=== PATIENT | male | born 1965 | race Caucasian/White ===

== ENCOUNTER → 2017-01-21 | Outpatient (CLI) | payer BC ==
[~2017-01-21] MED LIST: ATEN25TA PO; DOXY100C PO; OMEP40CA2 PO
[2017-01-21 18:47] LABS: ALBUMIN 4.4 GM/DL (3.2-5.2); ANION GAP 7 MEQ/L (8-16); BLOOD UREA NITROGEN 18 MG/DL (7-18); CALCIUM LEVEL 9.6 MG/DL (8.5-10.1); CARBON DIOXIDE LEVEL 29 MEQ/L (21-32); CHLORIDE LEVEL 103 MEQ/L (98-107); CREATININE FOR GFR 1.09 MG/DL (0.70-1.30); GLOMERULAR FILTRATION RATE > 60.0 (>56); GLUCOSE, FASTING 92 MG/DL (70-105); PHOSPHORUS LEVEL 3.7 MG/DL (2.5-4.9); POTASSIUM SERUM 4.6 MEQ/L (3.5-5.1); SODIUM LEVEL 139 MEQ/L (136-145); URIC ACID 7.8 MG/DL (3.5-7.2)
== END ==
LOC: M WUC 12:56
PROVIDERS: ATTEND Physician Assistant
DX: M10.9 Gout, unspecified (principal)

== ENCOUNTER → 2017-07-26 | Outpatient (CLI) | payer BC ==
[2017-07-26 14:04] LABS: BASO # 0.1 10^3/uL (0.0-0.2); BASO % 1.5 % (0.0-1.0); EOS # 0.5 10^3/uL (0.0-0.50); EOS % 8.7 % (0.0-3.0); IMMATURE GRANULOCYTE % 0.3 % (0-0); LYMPH # 1.9 10^3/uL (1.5-4.5); MEAN CORPUSCULAR HEMOGLOBIN 30.1 pg (27.0-33.0); MEAN CORPUSCULAR HGB CONC 33.9 g/dl (32.0-36.5); MEAN CORPUSCULAR VOLUME 88.9 fl (80.0-96.0); MONO # 0.5 10^3/uL (0.0-0.8); MONO % 7.7 % (0.0-5.0); NEUTROPHILS # 3.1 10^3/uL (1.8-7.7); NEUTROPHILS % 50.8 % (36.0-66.0); PLATELET COUNT, AUTOMATED 264 10^3/uL (150-450); RED CELL DISTRIBUTION WIDTH 13.1 % (11.5-14.5); WHITE BLOOD COUNT 6.1 10^3/uL (4.0-10.0)
[2017-07-26 14:16] LABS: ALBUMIN 4.1 GM/DL (3.2-5.2); ALBUMIN/GLOBULIN RATIO 1.41 (1.00-1.93); ALKALINE PHOSPHATASE 45 U/L (45-117); ALT/SGPT 41 U/L (12-78); ANION GAP 7 MEQ/L (8-16); AST/SGOT 22 U/L (15-37); BILIRUBIN,TOTAL 0.6 MG/DL (0.2-1.0); BLOOD UREA NITROGEN 16 MG/DL (7-18); CALCIUM LEVEL 10.1 MG/DL (8.5-10.1); CARBON DIOXIDE LEVEL 27 MEQ/L (21-32); CHLORIDE LEVEL 104 MEQ/L (98-107); CHOLESTEROL LEVEL 126 MG/DL (<200); CREATININE FOR GFR 0.99 MG/DL (0.70-1.30); GLOMERULAR FILTRATION RATE > 60.0 (>56); GLUCOSE, FASTING 101 MG/DL (70-105); POTASSIUM SERUM 4.9 MEQ/L (3.5-5.1); SODIUM LEVEL 138 MEQ/L (136-145); TRIGLYCERIDES LEVEL 110 MG/DL (<150)
== END ==
LOC: M WUC 08:33
PROVIDERS: ATTEND Family Medicine
DX: Z00.00 Encounter for general adult medical examination without abnormal findings (principal)

== ENCOUNTER → 2017-11-28 | Day surgery (SDC) | payer BC ==
[~2017-11-28] MED LIST changes: -ATEN25TA PO; -DOXY100C PO; +LIDOCAINE 2% INJ 100 MG/5 ML SDV (FOR ANES.) As Ordered; -OMEP40CA2 PO; +PROPOFOL 200 MG/20 ML VIAL As Ordered
[2017-11-28] MEDS: LR 500 ML IV (07:00)
== END | disposition home or self-care (01) ==
LOC: M OPP 06:57
DX: Z12.11 Encounter for screening for malignant neoplasm of colon (principal); D12.5 Benign neoplasm of sigmoid colon; D12.8 Benign neoplasm of rectum; I10 Essential (primary) hypertension; M10.9 Gout, unspecified; R12 Heartburn; K21.9 Gastro-esophageal reflux disease without esophagitis; M19.90 Unspecified osteoarthritis, unspecified site; L71.9 Rosacea, unspecified; R06.83 Snoring; G47.30 Sleep apnea, unspecified; Z87.442 Personal history of urinary calculi; Z87.891 Personal history of nicotine dependence; Z79.899 Other long term (current) drug therapy; Z83.71 Family history of colonic polyps
CPT/HCPCS: 45384

== ENCOUNTER → 2020-04-01 | Outpatient (REF) | payer OTHER ==
[~2020-04-01] MED LIST changes: +ALLO100T PO; +ATEN25TA PO; +DOXY100C PO; -LIDOCAINE 2% INJ 100 MG/5 ML SDV (FOR ANES.) As Ordered; +NEXI20CA PO; +OMEP40CA97 PO; -PROPOFOL 200 MG/20 ML VIAL As Ordered; +TYLE500T78 PO
[2020-04-01 18:53] LABS: APPEARANCE, URINE CLEAR (CLEAR); BACTERIA, URINE AUTO NEGATIVE (NEGATIVE); BILIRUBIN, URINE AUTO NEGATIVE (NEGATIVE); BLOOD, URINE BLOOD 1+ (NEGATIVE); CALCIUM OXALATE CRYSTALS SMALL; COLOR, URINE YELLOW (YELLOW); GLUCOSE, URINE (UA) AUTO NEGATIVE (NEGATIVE); KETONE, URINE AUTO NEGATIVE (NEGATIVE); LEUKOCYTE ESTERASE, URINE AUTO TRACE (NEGATIVE); MUCUS, URINE SMALL (NEGATIVE); NITRITE, URINE AUTO NEGATIVE (NEGATIVE); PROTEIN, URINE AUTO 1+ mg/dL (NEGATIVE); RBC, URINE AUTO 4 /HPF (0-3); SPECIFIC GRAVITY URINE AUTO 1.023 (1.002-1.035); SQUAMOUS EPITHELIAL CELL UR AU 0 /HPF (0-6); UROBILINOGEN, URINE AUTO 0.2 mg/dL (0.0-2.0); WBC, URINE AUTO 2 /HPF (0-3)
== END ==
LOC: M SMT 16:37
PROVIDERS: ATTEND Nurse Practitioner Women's Health
DX: R82.89 Other abnormal findings on cytological and histological examination of urine (principal); R31.29 Other microscopic hematuria

== ENCOUNTER → 2020-04-27 | Outpatient (CLI) | payer OTHER ==
[~2020-04-27] MED LIST changes: +ISOVUE-370 76% 100ML VIAL As Ordered ONE
--- NOTE | 2020-04-27 12:17 | REP ---
MICROSCOPIC HEMATURIA. The only prior for comparison is a noncontrast enhanced examination of 06/10/2009. CONTRAST TODAY: 100 mL Isovue 370. The lung bases are clear. The precontrast enhanced examination shows a round 4 cm sized low density structure arising from the superior pole of the right kidney. This has water density Hounsfield unit readings. This has increased in size from the prior exam. In the left renal pelvis, there is an oval-shaped 1 cm sized calcification. There is mild left renal pelviectasis without julisa hydronephrosis. In the interpolar region of the right kidney, there is a 7 mm sized non-obstructing nephrolith. Both calcifications represent a change from the prior exam. The prior exam did show an extrarenal pelvis on the left. No other renal or oral collecting system calcifications are present. There are no urinary bladder calcifications. There corpora amylacea status quo. Contrast-enhanced portion of the exam shows no abnormal renal enhancing abnormalities. The liver, gallbladder, spleen, pancreas, and adrenal glands are within normal limits. The bowel loops and mesenteries are within normal limits. There is no free fluid or free air. The abdominal aorta and para-aortic regions are within normal limits. Delayed imaging through the pelvis shows no evidence of a filling defect in the opacified portion of the urinary bladder. MIP 3D imaging of the renal collecting system bilaterally shows complete opacification of the left renal collecting system with incomplete opacification on the right likely secondary to normal ureteral peristaltic activity. This is seen in the mid portion of the right ureter. Bone window technique throughout the exam shows the osseous structures to be within normal limits. IMPRESSION: 1. Left renal pelvis calcification as described above. 2. Right nephrolith not causing obstructive phenomena as described above and seen in conjunction with a Bosniak class 1 simple right renal cyst. 3. Other findings as described above. Electronically Signed by Luther Hernandez DO 04/27/2020 02:27 P
== END ==
LOC: M RAD 08:57
PROVIDERS: ATTEND Nurse Practitioner Women's Health
DX: N20.0 Calculus of kidney (principal); R31.29 Other microscopic hematuria
CPT/HCPCS: 74178; Q9967

== ENCOUNTER → 2020-11-07 | Outpatient (CLI) | payer OTHER ==
[~2020-11-07] MED LIST changes: +FLOM0.4C39 PO; -ISOVUE-370 76% 100ML VIAL As Ordered ONE; +PERC5TAB12 PO
== END ==
LOC: M LABSMTC 09:24
PROVIDERS: ATTEND Anesthesiology
DX: Z01.812 Encounter for preprocedural laboratory examination (principal); Z20.822 Contact with and (suspected) exposure to COVID-19

== ENCOUNTER 2020-11-12 07:09 | Day surgery (SDC) | payer OTHER ==
[~2020-11-12] VITALS: Ht 177.8 cm; Wt 87.5 kg
[~2020-11-12 07:09] MED LIST changes: -FLOM0.4C39 PO; +LIDOCAINE 1% MDV 20ML VIAL SQ PRN; +LR 1,000 ML IV ONE; -PERC5TAB12 PO; +ceFAZolin SOD 2 GM in IV 1 EA IV ONE
--- OUTSIDE RECORDS SUMMARY | 2020-11-12 07:14 | CCD ---
Author Author [facility] Organization [facility] Address Unknown Phone Unavailable Care Team Providers Care Night Custodian Name Role Phone Anshu Rosales Unavailable PROBLEMS Type Condition ICD9-CM Code [id number] Code Onset Dates Condition S tatus SNOMED Code Notes Problem Kidney stone N20.0 Active 10191801 ALLERGIES No Known Allergies ENCOUNTERS from 1965 to 2020-11-11 Encounter Location Date Provider Diagnosis [facility] [address] [address] Oct Anshu Rosales IMMUNIZATIONS No Information SOCIAL HISTORY Tobacco Use: Social History Observation Description Date Details (start date - stop date) Former Smoker Sex Assigned At : Social History Observation Description Sex Assigned At Unknown Language: Question Answer Notes Languages spoken: Thai Latter Day: Question Answer Notes Latter Day No congregational beliefs that would impact health care. Alcohol Screening: Question Answer Notes Did you have a drink containing alcohol in the past year? Ye s Points 1 Interpretation Negative How often did you have six or more drinks on one occas ion in the past year? Never (0 points) How many drinks did you have on a typica l day when you were drinking in the past year? 1 or 2 (0 points) How often did you have a drink containing alcohol in t he past year? Monthly or less (1 point) Tobacco Use: Question Answer Notes Are you a: former smoker smoked cigars and o cc cig does not smoke regularly REASON FOR REFERRAL No Information VITAL SIGNS No information MEDICATIONS Medication SIG (Take, Route, Frequency, Duration) Notes Start Da te End Date Status Bactrim DS 800-160 MG 1 tablet Orally as directed- 1 hour prior to cystoscopy Mar, Not-Taking Doxycycline Hyclate 100 MG 1 capsule Orally Once a day for 10 day(s) Active Atenolol 25 MG 1 tablet Orally Once a day for 30 day(s) Active Allopurinol 300 MG 1 tablet Orally Once a day for 30 day(s) Active Metronidazole 1 % 1 application Externally Once a day Not-Taking Sildenafil Citrate 100 MG 1 tablet as needed Orally Once a day f or 30 day(s) Not-Taking PROCEDURES No Information RESULTS No Results REASON FOR VISIT Pre-op labs MEDICAL (GENERAL) HISTORY Type Description Date Medical History kidney stone Medical History GERD Medical History HTN Medical History GOUT Surgical History RIGHT INGUINAL HERNIA REPAIR Surgical History RIGHT ROOT X 2- [place] Surgical History LITHOTRIPSY Hospitalization History No Hospitalization history informati on Goals Section No Information Health Concerns No Information MEDICAL EQUIPMENT No Information MENTAL STATUS No Information FUNCTIONAL STATUS No Information ASSESSMENTS No Information PLAN OF TREATMENT Next Appt Details Provider Name:Milena Garcia, 2020-11-17 2 09:00:00 AM, [address], [place], [address], Insurance Providers Payer Name Payer Address Payer Phone Insured Name Patient Relati onship to Insured Coverage Start Date Coverage End Date [employer] [id number] [facility] [id number] [address] self
--- OUTSIDE RECORDS SUMMARY | 2020-11-12 07:14 | CCD ---
Author Author [facility] Organization [facility] Address Unknown Phone Unavailable Care Team Providers Care Medical Auditor Name Role Phone Milena Garcia Unavailable PROBLEMS Type Condition ICD9-CM Code [id number] Code Onset Dates Condition S tatus SNOMED Code Notes Problem Kidney stone N20.0 Active 37883837 ALLERGIES No Known Allergies ENCOUNTERS from 1965 to 2020-10-14 Encounter Location Date Provider Diagnosis [facility] Urology [address] [place] [address] Sep Milena Recore Kidney stone N20.0 and Pre-op testing Z0 1.818 IMMUNIZATIONS No Information SOCIAL HISTORY Tobacco Use: Social History Observation Description Date Details (start date - stop date) Former Smoker Sex Assigned At : Social History Observation Description Sex Assigned At Unknown Language: Question Answer Notes Languages spoken: Mexican Buddhist: Question Answer Notes Buddhist No congregation beliefs that would impact health care. Alcohol [...] Information RESULTS No Results REASON FOR VISIT [facility] MEDICAL (GENERAL) HISTORY Type Description Date Medical [...] No Information FUNCTIONAL STATUS No Information ASSESSMENTS Encounter Date Diagnosis Assessment Notes Treatment Notes Treatm ent Clinical Notes Sep, Kidney stone (ICD-10 - N20.0) Sep, Pre-op testing (ICD-10 - Z01.818) PLAN OF TREATMENT Treatment Notes Test Name Order Date CBC - Complete Blood Count 2020-10-14 PT & APTT 2020-10-14 URINE CULTURE 2020-10-14 UA URINALYSIS 2020-10-14 Basic Metabolic Profile (BMP) 2020-10-14 Future Test Test Name Order Date PLZ ABDOMEN 1 VIEW (KUB) [id number] Insurance Providers Payer Name Payer Address Payer Phone Insured Name Patient Relati onship to Insured Coverage Start Date Coverage End Date [employer] [id number] [id number] [address]
--- OUTSIDE RECORDS SUMMARY | 2020-11-12 07:14 | CCD ---
Author Author [facility] Organization [facility] Address Unknown Phone Unavailable Care Team Providers Care Child Care Center Administrator Name Role Phone Anshu Rosales Unavailable PROBLEMS Type Condition ICD9-CM Code LIB11-RC Code Onset Dates Condition S tatus SNOMED Code Notes Problem Kidney stone N20.0 Active [id number] ALLERGIES No Known Allergies ENCOUNTERS from 1965 to 2020-11-09 Encounter Location Date Provider Diagnosis [facility] [address] [place] [address] Oct Anshu Rosales IMMUNIZATIONS No Information SOCIAL HISTORY Tobacco Use: Social History Observation Description Date Details (start date - stop date) Former Smoker Sex Assigned At : Social History Observation Description Sex Assigned At Unknown Language: Question Answer Notes Languages spoken: Lao Islam: Question Answer Notes Islam No pentecostal beliefs that would impact health care. Alcohol [...] Information RESULTS No Results REASON FOR VISIT COVID exposure MEDICAL (GENERAL) HISTORY Type Description Date Medical [...] Provider Name:Milena Garcia, 2020-11-17 2 09:00:00 AM, [address], [place], [address], Insurance Providers Payer Name Payer Address Payer Phone Insured Name Patient Relati onship to Insured Coverage Start Date Coverage End Date [employer] [id number] [facility] [id number] [address] self
--- OUTSIDE RECORDS SUMMARY | 2020-11-12 07:14 | CCD ---
Author Author [facility] Organization [facility] Address Unknown Phone Unavailable Care Team Providers Care Master Brewer Name Role Phone Milena Garcia Unavailable PROBLEMS Type Condition ICD9-CM Code [id number] Code Onset Dates Condition S tatus SNOMED Code Notes Problem Kidney stone N20.0 Active 02102207 ALLERGIES No Known Allergies ENCOUNTERS from 1965 to 2020-10-22 Encounter Location Date Provider Diagnosis [facility] [address] [place] [address] Oct Milena Garcia Kidney stone N20.0 IMMUNIZATIONS No Information SOCIAL HISTORY Tobacco Use: Social History Observation Description Date Details (start date - stop date) Former Smoker Sex Assigned At : Social History Observation Description Sex Assigned At Unknown Language: Question Answer Notes Languages spoken: German Latter Day: Question Answer Notes Latter Day No zoroastrianism beliefs that would impact health care. Alcohol [...] Information RESULTS No Results REASON FOR VISIT KUB order MEDICAL (GENERAL) HISTORY Type Description Date Medical [...] Notes Treatment Notes Treatm ent Clinical Notes Oct, Kidney stone (ICD-10 - N20.0) PLAN OF TREATMENT Treatment Notes Test Name Order Date PLZ ABDOMEN 1 VIEW (KUB) 2020-10-22 Next Appt Details Provider Name:Milena Garcia, 2020-11-17 2 09:00:00 AM, [address], [place], [address], Insurance Providers Payer Name Payer Address Payer Phone Insured Name Patient Relati onship to Insured Coverage Start Date Coverage End Date [employer] [id number] [facility] [id number] [address]
--- OUTSIDE RECORDS SUMMARY | 2020-11-12 07:15 | CCD ---
Author Author [facility] Organization [facility] Address Unknown Phone Unavailable Care Team Providers Care Telephone Order Supervisor Name Role Phone Milena Garcia Unavailable PROBLEMS Type Condition ICD9-CM Code [id number] Code Onset Dates Condition S tatus SNOMED Code Notes Problem Kidney stone N20.0 Active 12740367 ALLERGIES No Known Allergies ENCOUNTERS from 1965 to 2020-10-01 Encounter Location Date Provider Diagnosis [facility] Urology [address] [place] [address] Sep Milena Garcia IMMUNIZATIONS No Information SOCIAL HISTORY Tobacco Use: Social History Observation Description Date Details (start date - stop date) Former Smoker Sex Assigned At : Social History Observation Description Sex Assigned At Unknown Language: Question Answer Notes Languages spoken: St [place] Anglican: Question Answer Notes Anglican No latter-day beliefs that would impact health care. Alcohol [...] Information ASSESSMENTS No Information PLAN OF TREATMENT No Information Insurance Providers Payer Name Payer Address Payer Phone Insured Name Patient Relati onship to Insured Coverage Start Date Coverage End Date [employer] [id number] [facility] [id number] [address] self
--- OUTSIDE RECORDS SUMMARY | 2020-11-12 07:15 | CCD ---
Author Author [facility] Organization [facility] Address Unknown Phone Unavailable Care Team Providers Care Appointment Manager Name Role Phone Pleskach, Joy STEAM LOCOMOTIVE FIRER/FIREMAN Unavailable Unavailable Pleskach, Joy STEAM LOCOMOTIVE FIRER/FIREMAN Unavailable Unavailable Pleskach, Joy STEAM LOCOMOTIVE FIRER/FIREMAN Unavailable Unavailable Pleskach, Joy STEAM LOCOMOTIVE FIRER/FIREMAN Unavailable Unavailable Pleskach, Joy STEAM LOCOMOTIVE FIRER/FIREMAN Unavailable Unavailable Pleskach, Joy STEAM LOCOMOTIVE FIRER/FIREMAN Unavailable Unavailable Pleskach, Joy STEAM LOCOMOTIVE FIRER/FIREMAN Unavailable Unavailable Pleskach, Joy STEAM LOCOMOTIVE FIRER/FIREMAN Unavailable Unavailable Pleskach, Joy STEAM LOCOMOTIVE FIRER/FIREMAN Unavailable Unavailable Pleskach, Joy STEAM LOCOMOTIVE FIRER/FIREMAN Unavailable Unavailable Pleskach, Joy STEAM LOCOMOTIVE FIRER/FIREMAN Unavailable Unavailable Pleskach, Joy STEAM LOCOMOTIVE FIRER/FIREMAN Unavailable Unavailable Pleskach, Joy STEAM LOCOMOTIVE FIRER/FIREMAN Unavailable Unavailable Pleskach, Joy STEAM LOCOMOTIVE FIRER/FIREMAN Unavailable Unavailable Pleskach, Joy STEAM LOCOMOTIVE FIRER/FIREMAN Unavailable Unavailable Pleskach, Joy STEAM LOCOMOTIVE FIRER/FIREMAN Unavailable Unavailable Pleskach, Joy STEAM LOCOMOTIVE FIRER/FIREMAN Unavailable Unavailable Pleskach, Joy STEAM LOCOMOTIVE FIRER/FIREMAN Unavailable Unavailable Pleskach, Joy STEAM LOCOMOTIVE FIRER/FIREMAN Unavailable Unavailable Pleskach, Joy STEAM LOCOMOTIVE FIRER/FIREMAN Unavailable Unavailable Pleskach, Joy STEAM LOCOMOTIVE FIRER/FIREMAN Unavailable Unavailable Pleskach, Joy STEAM LOCOMOTIVE FIRER/FIREMAN Unavailable Unavailable Pleskach, Joy STEAM LOCOMOTIVE FIRER/FIREMAN Unavailable Unavailable Pleskach, Joy STEAM LOCOMOTIVE FIRER/FIREMAN Unavailable Unavailable Pleskach, Joy STEAM LOCOMOTIVE FIRER/FIREMAN Unavailable Unavailable Pleskach, Joy STEAM LOCOMOTIVE FIRER/FIREMAN Unavailable Unavailable Pleskach, Joy STEAM LOCOMOTIVE FIRER/FIREMAN Unavailable Unavailable Pleskach, Joy STEAM LOCOMOTIVE FIRER/FIREMAN Unavailable Unavailable Re-disclosure Warning The records that you are about to access may contain information from federally-assisted alcohol or drug abuse programs. If such information is present, then the following federally mandated warning applies: This information has been disclosed to you from records protected by federal confidentiality rules (42 CFR part 2). The federal rules prohibit you from making any further disclosure of this information unless further disclosure is expressly permitted by the written consent of the person to whom it pertains or as otherwise permitted by 42 CFR part 2. A general authorization for the release of medical or other information is NOT sufficient for this purpose. The Federal rules restrict any use of the information to criminally investigate or prosecute any alcohol or drug abuse patient.The records that you are about to access may contain highly sensitive health information, the redisclosure of which is protected by Article 27-F of the [facility] Public Health law. If you continue you may have access to information: Regarding HIV / AIDS; Provided by facilities licensed or operated by the [facility] Office of Mental Health; or Provided by the [facility] Office for People With Developmental Disabilities. If such information is present, then the following [facility] mandated warning applies: This information has been disclosed to you from confidential records which are protected by state law. State law prohibits you from making any further disclosure of this information without the specific written consent of the person to whom it pertains, or as otherwise permitted by law. Any unauthorized further disclosure in violation of state law may result in a fine or long term sentence or both. A general authorization for the release of medical or other information is NOT sufficient authorization for further disc losure. Family History Family Member Name Family Member Gender Family Member Status Date o f Status Description Data Source(s) Unknown Male Problem MEDENT ([facility]) Unknown Unknown Problem [facility] ([facility] Unknown Unknown Problem [facility] ([facility] Encounters Encounter Providers Location Date Indications Data Source(s ) Unknown [address] [facility] [place] [address] 11/10/2020 12:00:00 AM EST eCW1 ([facility]) [place] [address] [facility] [address] 11/09/2020 12:00:00 AM EST eCW1 ([facility]) [place] [address] [facility] [address] 10/21/2020 12:00:00 AM EST eCW1 ([facility]) Unknown [address] [facility] [place] [address] 09/22/2020 12:00:00 AM EST eCW1 ([facility]) Outpatient [address] [facility] [address] 09/16/2020 12:00:00 AM EST eCW1 ([facility]) Outpatient [address] [facility] [address] 04/01/2020 12:00:00 AM EDT eCW1 ([facility]) Outpatient Attender: Joy Obando [facility] Main Office 03/17/2020 1 0:40:00 AM EDT [facility] ([facility] Medications Medication Brand Name Start Date Product Form Dose Route Admi nistrative Instructions Pharmacy Instructions Status Indications Reaction Description Data Source(s) 100,000 unit/mL 06/10/2020 12:00:00 AM EDT suspension 168 SWISH 6MLS IN THE MOUTH FOR 30 SECONDS THEN SWALLOW FOUR TIMES A DAY SWISH 6MLS IN THE MOUTH FOR 30 SECONDS THEN SWALLOW FOUR TIMES A DAY SOLD: 06/12/2020 [facility] Sulfamethoxazole 800 MG / Trimethoprim 1 60 MG Oral Tablet [Bactrim] Bactrim DS 800-160 MG Bactrim DS 800-160 MG 04/01/2020 12:00:00 AM EDT 1.0 {table t} active Bactrim DS 800-160 MG eCW1 ( [facility]) Sulfamethoxazole 800 MG / Trimethoprim 1 60 MG Oral Tablet [Bactrim] Bactrim DS 800-160 MG Bactrim DS 800-160 MG 04/01/2020 12:00:00 AM EDT 1.0 {table t} suspended Bactrim DS 800-160 MG eCW1 ( [facility]) Sulfamethoxazole 800 MG / Trimethoprim 1 60 MG Oral Tablet [Bactrim] Bactrim DS 800-160 MG Bactrim DS 800-160 MG 04/01/2020 12:00:00 AM EDT 1.0 {table t} suspended Bactrim DS 800-160 MG eCW1 ( [facility]) Sulfamethoxazole 800 MG / Trimethoprim 1 60 MG Oral Tablet [Bactrim] Bactrim DS 800-160 MG Bactrim DS 800-160 MG 04/01/2020 12:00:00 AM EDT 1.0 {table t} suspended Bactrim DS 800-160 MG eCW1 ( [facility]) Sulfamethoxazole 800 MG / Trimethoprim 1 60 MG Oral Tablet [Bactrim] Bactrim DS 800-160 MG Bactrim DS 800-160 MG 04/01/2020 12:00:00 AM EDT 1.0 {table t} suspended Bactrim DS 800-160 MG eCW1 ( [facility]) Sulfamethoxazole 800 MG / Trimethoprim 1 60 MG Oral Tablet [Bactrim] Bactrim DS 800-160 MG Bactrim DS 800-160 MG 04/01/2020 12:00:00 AM EDT 1.0 {table t} suspended Bactrim DS 800-160 MG eCW1 ( [facility]) Sulfamethoxazole 800 MG / Trimethoprim 1 60 MG Oral Tablet [Bactrim] Bactrim DS 800-160 MG Bactrim DS 800-160 MG 04/01/2020 12:00:00 AM EDT 1.0 {table t} suspended Bactrim DS 800-160 MG eCW1 ( [facility]) Insurance Providers Payer name Policy type / Coverage type Policy ID Covered libertarian ID Covered libertarian's relationship to morales Policy Morales Plan Information [employer] [id number] SP [id number] [employer] [id number] SP [id number] [employer] [id number] SP [id number] [employer] [id number] SP [id number] [place] 302/307 [id number] SP [id number] [place] 302/307 [id number] SP [id number] BS Of [facility] Health Maintenance Organization (HMO) [id number] Self [id number] BS Of [facility] ([facility]) [id number] Self [id number] BS Of [facility] ([facility]) [id number] Self [id number] BCBS/Blue Card Commercial [id number] Self [id number] BCBS/Blue Card Commercial [id number] Self [id number] BS Of [facility] ([facility]) Self [facility] [id number] SP [id number] Problems, Conditions, and Diagnoses Code Display Name Description Problem Type Effective Dates Data Source(s) N20.0 Kidney stone Kidney stone Problem 09/16/2020 12:00:00 A M EST eCW1 ([facility]) Results ID Date Data Source [id number] 11/07/2020 09:00:00 AM EST [facility] Name Value Range Interpretation Code Description Data Ana rce(s) Supporting Document(s) SARS coronavirus 2 RNA Not Detected [facility] This lab was ordered by [facility] and reported by [facility]. ID Date Data Source [id number] 03/19/2020 02:14:00 PM EDT [facility] ([facility] Name Value Range Interpretation Code Description Data Ana rce(s) Supporting Document(s) Albumin/Creatinine [Mass Ratio] in Urine 31 mg/gcreat 0-29 [facility] ([facility] Source of Specimen: UC Normal: 0 - 29 Moderately increased: 30 - 300 Severely increased: >300 Please note reference interval change Creatinine [Mass/volume] in Urine 130.4 mg/dL [facility] ([facility] Source of Specimen: UC Microalbumin [Mass/volume] in Urine 40.8 ug/mL [facility] ([facility] Source of Specimen: UC ID Date Data Source [id number] 03/19/2020 02:14:00 PM EDT [facility] ([facility] Name Value Range Interpretation Code Description Data Ana rce(s) Supporting Document(s) Glucose [Mass/volume] in Serum or Plasma 123 mg/dL 65-99 [facility] ([facility] Source of Specimen: UC Urea nitrogen [Mass/volume] in Serum or Plasma 19 mg/dL 6-24 [facility] ([facility] Source of Specimen: UC Creatinine [Mass/volume] in Serum or Plasma 0.88 mg/dL 0.76-1.27 [facility] ([facility] Source of Specimen: UC Urea nitrogen/Creatinine [Mass Ratio] in Serum or Plasma 22 9 -20 [facility] ([facility] Source of Specimen: UC eGFR If NonAfricn Am 96 mL/min/1.73 [facility] ([facility] Source of Specimen: UC eGFR If Africn Am 111 mL/min/1.73 [facility] ([facility] Source of Specimen: UC Sodium [Moles/volume] in Serum or Plasma 140 mmol/L 134-144 [facility] ([facility] Source of Specimen: UC Chloride [Moles/volume] in Serum or Plasma 106 mmol/L 96-106 [facility] ([facility] Source of Specimen: UC Potassium [Moles/volume] in Serum or Plasma 4.1 mmol/L 3.5-5.2 [facility] ([facility] Source of Specimen: UC Calcium [Mass/volume] in Serum or Plasma 9.5 mg/dL 8.7-10.2 [facility] ([facility] Source of Specimen: UC Protein, Total 6.9 g/dL 6.0-8.5 [facility] ([facility] Source of Specimen: UC Carbon dioxide, total [Moles/volume] in Serum or Plasma 21 mmol/L 20 -29 [facility] ([facility] Source of Specimen: UC Albumin [Mass/volume] in Serum or Plasma 4.6 g/dL 3.8-4.9 [facility] ([facility] Source of Specimen: UC Globulin [Mass/volume] in Serum by calculation 2.3 g/dL 1.5-4.5 [facility] ([facility] Source of Specimen: UC Albumin/Globulin [Mass Ratio] in Serum or Plasma 2.0 1.2-2.2 [facility] ([facility] Source of Specimen: UC Bilirubin.total [Mass/volume] in Serum or Plasma 0.2 mg/dL 0.0-1.2 [facility] ([facility] Source of Specimen: UC Alkaline phosphatase [Enzymatic activity/volume] in Serum or Plasma 45 IU/L 39-117 [facility] ([facility] Source of Specimen: UC Alanine aminotransferase [Enzymatic activity/volume] in Seru m or Plasma 25 IU/L 0-44 [facility] ([facility] Source of Specimen: UC Aspartate aminotransferase [Enzymatic activity/volume] in Serum or Plasma 21 IU/L 0-40 [facility] ([facility] Source of Specimen: UC ID Date Data Source [id number] 03/19/2020 02:14:00 PM EDT [facility] ([facility] Name Value Range Interpretation Code Description Data Ana rce(s) Supporting Document(s) Bacteria identified in Urine by Culture Laboratory test result [facility] ([facility] Source of Specimen: UC Urine Culture, Routine Laboratory test result [facility] ([facility] Source of Specimen: UC ID Date Data Source [id number] 03/19/2020 02:14:00 PM EDT [facility] ([facility] Name Value Range Interpretation Code Description Data Ana rce(s) Supporting Document(s) Leukocytes [#/volume] in Blood by Automated count 6.2 x10E3/uL 3.4-10 .8 [facility] ([facility] Source of Specimen: UC Hematocrit [Volume Fraction] of Blood by Automated count 44.9 % 3 7.5-51.0 [facility] ([facility] Source of Specimen: UC Hemoglobin [Mass/volume] in Blood 15.7 g/dL 13.0-17.7 [facility] ([facility] Source of Specimen: UC Erythrocytes [#/volume] in Blood by Automated count 5.10 x10E6/uL 4.1 4-5.80 [facility] ([facility] Source of Specimen: UC Erythrocyte mean corpuscular volume [Entitic volume] by Auto mated count 88 fL 79-97 [facility] ([facility] Source of Specimen: UC Erythrocyte mean corpuscular hemoglobin [Entitic mass] by Automated count 30.8 pg 26.6-33.0 [facility] ([facility] Source of Specimen: UC Erythrocyte mean corpuscular hemoglobin concentration [Mass/volume] by Automated count 35.0 g/dL 31.5-35.7 [facility] ([facility] Source of Specimen: UC Erythrocyte distribution width [Ratio] by Automated count 13.7 % 11.6-15.4 [facility] ([facility] Source of Specimen: UC Platelets [#/volume] in Blood by Automated count 275 x10E3/uL 150-450 [facility] ([facility] Source of Specimen: UC Neutrophils 44 % [facility] Source of Specimen: UC Lymphocytes/100 leukocytes in Blood by Automated count 37 % [facility] ([facility] Source of Specimen: UC Monocytes/100 leukocytes in Blood by Automated count 6 % [facility] ([facility] Source of Specimen: UC Eosinophils/100 leukocytes in Blood by Automated count 11 % [facility] ([facility] Source of Specimen: UC Basophils/100 leukocytes in Blood by Automated count 2 % [facility] ([facility] Source of Specimen: UC Neutrophils [#/volume] in Blood by Automated count 2.7 x10E3/uL 1.4-7 .0 [facility] ([facility] Source of Specimen: UC Immature cells [#/volume] in Blood Laboratory test result [facility] ([facility] Source of Specimen: UC Lymphocytes [#/volume] in Blood 2.3 x10E3/uL 0.7-3.1 [facility] ([facility] Source of Specimen: UC Monocytes [#/volume] in Blood 0.4 x10E3/uL 0.1-0.9 [facility] ([facility] Source of Specimen: UC Eosinophils [#/volume] in Blood by Automated count 0.7 x10E3/uL 0.0-0 .4 [facility] ([facility] Source of Specimen: UC Basophils [#/volume] in Blood by Automated count 0.1 x10E3/uL 0.0-0.2 [facility] ([facility] Source of Specimen: UC Immature granulocytes/100 leukocytes in Blood by Automated count 0 % [facility] ([facility] Source of Specimen: UC Immature granulocytes [#/volume] in Blood by Automated count 0.0 x10E3/uL 0.0-0.1 [facility] ([facility] Source of Specimen: UC Nucleated erythrocytes/100 leukocytes [Ratio] in Blood by Automated count Laboratory test result [facility] ([facility] Source of Specimen: Morphology [Interpretation] in Blood Narrative Laboratory test result [facility] ([facility] Source of Specimen: ID Date Data Source [id number] 03/20/2020 08:07:00 AM EDT [facility] Name Value Range Interpretation Code Description Data Ana rce(s) Supporting Document(s) WBC 6.2 x10E3/uL 3.4-10.8 [facility] RBC 5.10 x10E6/uL 4.14-5.80 [facility] Hemoglobin 15.7 g/dL 13.0-17.7 [facility] Hematocrit 44.9 % 37.5-51.0 [facility] MCV 88 fL 79-97 [facility] MCH 30.8 pg 26.6-33.0 [facility] MCHC 35.0 g/dL 31.5-35.7 [facility] RDW 13.7 % 11.6-15.4 [facility] Platelets 275 x10E3/uL 150-450 [facility] Neutrophils 44 % Not Estab. [facility] Lymphs 37 % Not Estab. [facility] Monocytes 6 % Not Estab. [facility] Eos 11 % Not Estab. [facility] Basos 2 % Not Estab. [facility] Neutrophils (Absolute) 2.7 x10E3/uL 1.4-7.0 [facility] Lymphs (Absolute) 2.3 x10E3/uL 0.7-3.1 [facility] Monocytes(Absolute) 0.4 x10E3/uL 0.1-0.9 [facility] Eos (Absolute) 0.7 x10E3/uL 0.0-0.4 Above high normal [facility] Baso (Absolute) 0.1 x10E3/uL 0.0-0.2 [facility] Immature Granulocytes 0 % Not Estab. [facility] Immature Grans (Abs) 0.0 x10E3/uL 0.0-0.1 [facility] ID Date Data Source [id number] 03/20/2020 12:06:00 PM EDT [facility] Name Value Range Interpretation Code Description Data Ana rce(s) Supporting Document(s) Creatinine, Urine 130.4 mg/dL Not Estab. [facility] Albumin, Urine 40.8 ug/mL Not Estab. [facility] Alb/Creat Ratio 31 mg/g creat 0-29 Above high normal [facility] No rmal: 0 - 29 Moderately increased: 30 - 300 Severely increased: >300 Please note reference interval change ID Date Data Source [id number] 03/21/2020 02:05:00 AM EDT [facility] Name Value Range Interpretation Code Description Data Ana rce(s) Supporting Document(s) Urine Culture, Routine Final report [facility] ID Date Data Source [id number] 03/20/2020 08:07:00 AM EDT [facility] Name Value Range Interpretation Code Description Data Ana rce(s) Supporting Document(s) Glucose 123 mg/dL 65-99 Above high normal [facility] BUN 19 mg/dL 6-24 [facility] Creatinine 0.88 mg/dL 0.76-1.27 [facility] eGFR If NonAfricn Am 96 mL/min/1.73 >59 [facility] eGFR If Africn Am 111 mL/min/1.73 >59 [facility] BUN/Creatinine Ratio 22 9-20 Above high normal [facility] Sodium 140 mmol/L 134-144 [facility] Potassium 4.1 mmol/L 3.5-5.2 [facility] Chloride 106 mmol/L 96-106 [facility] Carbon Dioxide, Total 21 mmol/L 20-29 [facility] Calcium 9.5 mg/dL 8.7-10.2 [facility] Protein, Total 6.9 g/dL 6.0-8.5 [facility] Albumin 4.6 g/dL 3.8-4.9 [facility] Globulin, Total 2.3 g/dL 1.5-4.5 [facility] A/G Ratio 2.0 1.2-2.2 [facility] Bilirubin, Total 0.2 mg/dL 0.0-1.2 [facility] Alkaline Phosphatase 45 IU/L 39-117 [facility] AST (SGOT) 21 IU/L 0-40 [facility] ALT (SGPT) 25 IU/L 0-44 [facility] ID Date Data Source [id number] 03/21/2020 02:05:00 AM EDT [facility] Name Value Range Interpretation Code Description Data Ana rce(s) Supporting Document(s) Result 1 No growth [facility] ID Date Data Source [id number] 03/17/2020 11:18:00 AM EDT [facility] ([facility] Name Value Range Interpretation Code Description Data Ana rce(s) Supporting Document(s) Color of Urine Laboratory test result [facility] ([facility] pH of Urine by Test strip 5 [facility] Specific gravity of Urine 1.025 [facility] NT ([facility] Appearance of Urine Laboratory test result [facility] ([facility] Leukocytes [#/area] in Urine sediment by Microscopy hi gh power field Laboratory test result [facility] ([facility] Protein [Presence] in Urine by Test strip Laboratory test result [facility] ([facility] Glucose [Presence] in Urine Laboratory test result [facility] ([facility] Bilirubin.total [Presence] in Urine by Test strip Laboratory test res ult [facility] ([facility] Ketones [Presence] in Urine by Test strip Laboratory test result [facility] ([facility] Urobilinogen [Mass/volume] in Urine by Test strip Laboratory test res ult [facility] ([facility] Nitrite [Presence] in Urine by Test strip Laboratory test result [facility] ([facility] Hemoglobin [Presence] in Urine by Test strip Laboratory test result [facility] ([facility] Procedure Social History Code Duration Value Status Description Data Source(s ) Smoking 09/16/2020 12:00:00 AM EST Former Smoker completed Former Smoker eCW1 ([facility]) Smoking 09/16/2020 12:00:00 AM EST Former Smoker completed Former Smoker eCW1 ([facility]) Smoking 09/16/2020 12:00:00 AM EST Former Smoker completed Former Smoker eCW1 ([facility]) Smoking 09/16/2020 12:00:00 AM EST Former Smoker completed Former Smoker eCW1 ([facility]) Smoking 09/16/2020 12:00:00 AM EST Former Smoker completed Former Smoker eCW1 ([facility]) Smoking 09/16/2020 12:00:00 AM EST Former Smoker completed Former Smoker eCW1 ([facility]) Smoking 04/01/2020 12:00:00 AM EDT Former Smoker completed Former Smoker eCW1 ([facility]) Smoking 03/17/2020 12:00:00 AM EDT Patient is a former smoker completed Patient is a former smoker [facility] ([facility] Vital Signs ID Date Data Source [id number] Name Value Range Interpretation Code Description Data Source(s) Diastolic blood pressure 80 mm[Hg] 80 mm[Hg] eCW1 ([facility]) Systolic blood pressure 136 mm[Hg] 136 mm[Hg] e CW1 ([facility]) Body temperature 97.6 [degF] 97.6 [degF] eCW1 ( [facility]) Respiratory rate 18 /min 18 /min eCW1 ([facility]) Heart rate 60 /min 60 /min eCW1 ([facility]) Body mass index (BMI) [Ratio] 28.44 kg/m2 28.44 kg/m2 W1 ([facility]) Body height 70 [in_i] 70 [in_i] eCW1 ([facility]) Body weight 198.2 [lb_av] 198.2 [lb_av] eCW1 ([facility]) Diastolic blood pressure 84 mm[Hg] 84 mm[Hg] eCW1 ([facility]) Systolic blood pressure 132 mm[Hg] 132 mm[Hg] e CW1 ([facility]) Body temperature 98.5 [degF] 98.5 [degF] eCW1 ( [facility]) Respiratory rate 18 /min 18 /min eCW1 ([facility]) Heart rate 67 /min 67 /min eCW1 ([facility]) Body mass index (BMI) [Ratio] 27.26 kg/m2 27.26 kg/m2 eCW1 ([facility]) Body height 70 [in_i] 70 [in_i] eCW1 ([facility]) Body weight 190 [lb_av] 190 [lb_av] eCW1 ([facility]) Body mass index (BMI) [Ratio] 27.6 kg/m2 27.6 k g/m2 [facility] ([facility] Oxygen saturation in Arterial blood by Pulse oximetry 98 % 98 % [facility] ([facility] Body weight 192.12 [lb_av] 192.12 [lb_av] MEDEN T ([facility] Body height 70 [in_i] 70 [in_i] [facility] ([facility] 5'10" Respiratory rate 12 /min 12 /min [facility] ( [facility] Body temperature 97.6 [degF] 97.6 [degF] [facility] ([facility] Heart rate 60 /min 60 /min [facility] ([facility] Diastolic blood pressure 76 mm[Hg] 76 mm[Hg] [facility] ([facility] Systolic blood pressure 124 mm[Hg] 124 mm[Hg] M EDENT ([facility] Patient Treatment Plan of Care Planned Activity Planned Date Details Description Data Source (s) Sulfamethoxazole 800 MG / Trimethoprim 160 MG Oral Tab let [Bactrim] 04/01/2020 12:00:00 AM EDT eCW1 ([facility])
--- OUTSIDE RECORDS SUMMARY | 2020-11-12 07:15 | CCD ---
Author Author [facility] Organization [facility] Address Unknown Phone Unavailable Care Team Providers Care Addiction Therapist Name Role Phone Milena Garcia Unavailable PROBLEMS Type Condition ICD9-CM Code [id number] Code Onset Dates Condition S tatus SNOMED Code Notes Problem Kidney stone N20.0 Active [id number] ALLERGIES No Known Allergies ENCOUNTERS from 1965 to 2020-09-18 Encounter Location Date Provider Diagnosis [facility] [address] [place] [address] Sep Milena Garcia Kidney stone N20.0 IMMUNIZATIONS No Information SOCIAL HISTORY Tobacco Use: Social History Observation Description Date Details (start date - stop date) Former Smoker Sex Assigned At : Social History Observation Description Sex Assigned At Unknown Language: Question Answer Notes Languages spoken: Azeri Christianity: Question Answer Notes Christianity No yarsani beliefs that would impact health care. Alcohol [...] REASON FOR REFERRAL No Information VITAL SIGNS Weight 198.2 lbs Sep, Height 70 in Sep, BMI 28.44 kg/m2 Sep, Heart Rate 60 /min Sep, Respiratory Rate 18 /min Sep, Temperature 97.6 degrees Fahrenheit Sep, Oximetry 93 Sep, Blood pressure systolic 136 mm Hg Sep, Blood pressure diastolic 80 mm Hg Sep, MEDICATIONS Medication SIG (Take, Route, Frequency, Duration) [...] Information RESULTS No Results REASON FOR VISIT kidney stone f/u MEDICAL (GENERAL) HISTORY Type Description Date Medical [...] Notes Sep, Kidney stone (ICD-10 - N20.0) PLAN OF TREATMENT Treatment Notes Test Name Order Date PLZ ABDOMEN 1 VIEW (KUB) 2020-09-18 Next Appt Details OR in Oct for ESWL Reason: Insurance Providers Payer Name Payer Address Payer Phone Insured Name Patient Relati onship to Insured Coverage Start Date Coverage End Date [employer] [id number] [facility] [id number] [address]
[2020-11-12] MEDS ORDERED: propofoL 200 MG/20 ML VIAL As Ordered ONE (07:19)
[2020-11-12] MEDS ORDERED: fentaNYL 100 MCG/2 ML INJECTION (J3010) As Ordered ONE (07:20)
[2020-11-12] MEDS ORDERED: MIDAZOLAM INJ 2MG/2ML VIAL (J2250 PER 1MG) As Ordered ONE (07:20)
[2020-11-12] MEDS ORDERED: LIDOCAINE 2% 100MG/5ML SDV (FOR ANES.) As Ordered ONE (07:21)
--- NOTE | 2020-11-12 08:12 | REP ---
INDICATION: KIDNEY STONES- KUB PRIOR TO SDC COMPARISON: None. TECHNIQUE: Supine view of the abdomen and pelvis. FINDINGS: Bilateral intrarenal calculi identified including 8 mm left nephrolith and 6 mm right nephrolith. Further evaluation of the urinary tract system is limited due to overlying bowel gas. Nonspecific bowel gas pattern without obstruction. No organomegaly. No foreign body. Skeletal structures intact. IMPRESSION: Bilateral nephrolithiasis <Electronically signed by Luciano Licea > 11/12/20 [id number]
[2020-11-12] MEDS ORDERED: PERC5TAB12 PO (08:45)
[2020-11-12] MEDS ORDERED: FLOM0.4C39 PO (08:45)
[2020-11-12] MEDS ORDERED: dexameTHASONE 4 MG/ML 1ML VIAL (J1100 PER 1MG) As Ordered ONE (08:46)
[2020-11-12] MEDS ORDERED: KETOROLAC 60MG 2ML VIAL As Ordered ONE (08:46)
[2020-11-12] MEDS ORDERED: ONDANSETRON 4MG/2ML VIAL As Ordered ONE (08:46)
[2020-11-12] MEDS ORDERED: ePHEDrine SULFATE 25 MG/5 ML(5MG/ML) SYRINGE As Ordered ONE (08:49)
[2020-11-12] MEDS ORDERED: fentaNYL 100 MCG/2 ML INJECTION (J3010) IV PRN (09:30)
[2020-11-12] MEDS ORDERED: PERCOCET 5MG/325MG TAB PO PRN (09:30)
[2020-11-12] MEDS ORDERED: ONDANSETRON 4MG/2ML VIAL IV PRN (09:30)
[2020-11-12] MEDS ORDERED: oxyCODONE 5MG TAB PO PRN (09:30)
[2020-11-12] MEDS ORDERED: LR 1,000 ML IV SCH (09:30)
[2020-11-12 09:40] VITALS: BP 113/79
--- NOTE | 2020-11-12 09:48 | RO ---
OPERATIVE NOTE DATE OF OPERATION: 11/12/2020 PREOPERATIVE DIAGNOSIS: Left kidney stone. POSTOPERATIVE DIAGNOSIS: Left kidney stone. PROCEDURE: Left extracorporeal shockwave lithotripsy. SURGEON: Anshu Rosales MD RENAL DIALYSIS TECHNICIAN: None. ANESTHESIA: MAC. OPERATIVE INDICATION: This is a 55-year-old male who was found to have an 8-mm left kidney stone. He was brought to the operating room today for treatment. DESCRIPTION OF PROCEDURE: The patient was brought to the operating room and MAC anesthesia was administered. Prophylactic antibiotics were infused. He was then placed in the supine position in preparation for a left-sided extracorporeal shockwave lithotripsy. Fluoroscopy was utilized to monitor stone position and fragmentation throughout the procedure. Shockwaves were then delivered to the left-sided kidney stone ungated. There were no arrhythmias. The stone did appear to fragment well. After 2500 shocks, the procedure was concluded. The patient was awakened from anesthesia and transported to the recovery room in stable condition. ESTIMATED BLOOD LOSS: 0 mL. COMPLICATIONS: None. SPECIMENS: None. PLAN: The patient will follow-up in the urology clinic in a few weeks for the imaging prior to assessing for residual stone burden. JOLYNN
--- NOTE | 2020-11-12 15:21 | ECGEPIP ---
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
== END 2020-11-12 10:42 | disposition home or self-care (01) ==
LOC: M SDC 07:09
PROVIDERS: ATTEND Urology
DX: N20.0 Calculus of kidney (principal); I10 Essential (primary) hypertension; M10.9 Gout, unspecified; G47.30 Sleep apnea, unspecified; Z79.899 Other long term (current) drug therapy
CPT/HCPCS: 50590; 74018; 93005; J0690; J1100; J1885; J2250; J2405; J3010; U0002

== ENCOUNTER → 2020-12-08 | Outpatient (REF) | payer OTHER ==
[~2020-12-08] MED LIST changes: +FLOM0.4C39 PO; -LIDOCAINE 1% MDV 20ML VIAL SQ PRN; -LR 1,000 ML IV ONE; +PERC5TAB12 PO; -ceFAZolin SOD 2 GM in IV 1 EA IV ONE
== END ==
LOC: M LAB REF 11:00
PROVIDERS: ATTEND Nurse Practitioner Women's Health
DX: N20.0 Calculus of kidney (principal)

== ENCOUNTER → 2021-01-06 | Outpatient (CLI) | payer OTHER ==
--- NOTE | 2021-01-06 16:39 | REP ---
INDICATION: CALCULUS OF KIDNEY. COMPARISON: 11/12/2020. TECHNIQUE: Single AP supine view of the abdomen and pelvis. FINDINGS: The prior study there was an 8 mm calculus projected over the left kidney medially. This is no longer present on the current study. On the prior study there is a 6 mm calculus projected over the right kidney. I suspect this can again be seen on the current study, however, the area is superimposed by bowel gas and the finding could be artifact from bowel lumen contents. No other calcifications are identified. Skeletal and soft tissue structures otherwise are unremarkable. IMPRESSION: The previous left renal calcification is no longer present. The right renal calculus questionably remains, versus artifact from superimposed bowel. <Electronically signed by Alvaro Harrington > 01/06/21 [id number]
== END ==
LOC: M RAD 14:06
PROVIDERS: ATTEND Nurse Practitioner Women's Health
DX: N20.0 Calculus of kidney (principal)

== ENCOUNTER → 2021-10-22 | Outpatient (REF) ==
[~2021-10-22] MED LIST changes: -DOXY100C PO; +DOXY100C3 PO; +OMEP40CA4 PO; -OMEP40CA97 PO
== END ==
LOC: M LABSMTC 09:22
PROVIDERS: ATTEND Pediatrics
DX: Z20.822 Contact with and (suspected) exposure to COVID-19 (principal)

== ENCOUNTER → 2022-09-20 | Outpatient (CLI) | payer BC | LOC: M PLALAB 12:25 | PROVIDERS: ATTEND Nurse Practitioner Family | DX: M54.50 Low back pain, unspecified (principal); I87.8 Other specified disorders of veins ==

== ENCOUNTER → 2023-10-03 | Outpatient (CLI) | payer BC | LOC: M WUC 10:03 | PROVIDERS: ATTEND Nurse Practitioner Family | DX: M25.522 Pain in left elbow (principal); M79.602 Pain in left arm; M25.532 Pain in left wrist; S52.122A Displaced fracture of head of left radius, initial encounter for closed fracture; M25.422 Effusion, left elbow; X58.XXXA Exposure to other specified factors, initial encounter; Y92.9 Unspecified place or not applicable; Y93.9 Activity, unspecified; Y99.9 Unspecified external cause status ==

== ENCOUNTER → 2024-03-01 | Outpatient (CLI) | payer BC ==
[2024-03-01 12:14] LABS: HEMOGLOBIN A1c 6.2 % (4.0-6.0)
[2024-03-01 12:17] LABS: PSA SCREENING 1.21 NG/ML (< 4.00)
[2024-03-01 12:18] LABS: CREATININE, URINE 91.6 MG/DL; MAU/CREAT RATIO 5.4 MCG/MG (0.0-30.0)
[2024-03-01 12:19] LABS: ALBUMIN 4.1 G/DL (3.2-5.2); ALKALINE PHOSPHATASE 51 U/L (46-116); ALT/SGPT 45 U/L (7.0-40); AST/SGOT 18 U/L (<34); BILIRUBIN,TOTAL 0.6 MG/DL (0.3-1.2); BLOOD UREA NITROGEN 23 MG/DL (9-23); CALCIUM LEVEL 9.6 MG/DL (8.3-10.6); CARBON DIOXIDE LEVEL 26 MMOL/L (20-31); CHLORIDE LEVEL 107 MMOL/L (98-107); CHOLESTEROL LEVEL 135 MG/DL (<200); CHOLESTEROL RISK RATIO 4.28 (<5); CREATININE FOR GFR 1.02 MG/DL (0.70-1.30); GLOMERULAR FILTRATION RATE > 60.0 (>49); GLUCOSE, FASTING 111 MG/DL (74-106); HDL CHOLESTEROL 31.5 MG/DL (>40); LDL CHOLESTEROL 49.3 MG/DL (<100); NON-HDL-C 103.5 MG/DL; POTASSIUM SERUM 4.7 MMOL/L (3.5-5.1); SODIUM LEVEL 138 MMOL/L (136-145); TRIGLYCERIDES LEVEL 271 MG/DL (<150)
[2024-03-01 12:20] LABS: URIC ACID 6.3 MG/DL (3.7-9.2)
== END ==
LOC: M LAB 11:15
PROVIDERS: ATTEND Nurse Practitioner Family
DX: I10 Essential (primary) hypertension (principal)

== ENCOUNTER → 2024-08-23 | Outpatient (CLI) | payer BC | LOC: M PLAIMG 13:57 | PROVIDERS: ATTEND Nurse Practitioner Family | DX: R10.9 Unspecified abdominal pain (principal); K76.0 Fatty (change of) liver, not elsewhere classified; N20.0 Calculus of kidney; N28.1 Cyst of kidney, acquired ==

== ENCOUNTER → 2024-12-25 | Outpatient (CLI) | payer BC ==
[2024-12-25 10:32] LABS: APPEARANCE, URINE CLEAR (CLEAR); BACTERIA, URINE AUTO NEGATIVE (NEGATIVE); BILIRUBIN, URINE AUTO NEGATIVE (NEGATIVE); BLOOD, URINE BLOOD NEGATIVE (NEGATIVE); COLOR, URINE YELLOW (YELLOW); GLUCOSE, URINE (UA) AUTO NEGATIVE (NEGATIVE); KETONE, URINE AUTO NEGATIVE (NEGATIVE); LEUKOCYTE ESTERASE, URINE AUTO NEGATIVE (NEGATIVE); MUCUS, URINE SMALL (NEGATIVE); NITRITE, URINE AUTO NEGATIVE (NEGATIVE); PROTEIN, URINE AUTO NEGATIVE (NEGATIVE); RBC, URINE AUTO 1 /HPF (0-3); SPECIFIC GRAVITY URINE AUTO 1.016 (1.002-1.035); SQUAMOUS EPITHELIAL CELL UR AU 0 /HPF (0-6); UROBILINOGEN, URINE AUTO 0.2 mg/dL (0.0-2.0); WBC, URINE AUTO 3 /HPF (0-3)
[2024-12-25 11:27] LABS: BASO # 0.1 10^3/uL (0.0-0.2); BASO % 1.5 % (0.0-1.0); EOS # 0.4 10^3/uL (0.0-0.5); HEMATOCRIT 49.1 % (42.0-52.0); HEMOGLOBIN 16.9 g/dl (13.5-17.5); LYMPH # 2.5 10^3/uL (1.5-5.0); LYMPH % 34.3 % (24.0-44.0); MEAN CORPUSCULAR HEMOGLOBIN 30.2 pg (27.0-33.0); MEAN CORPUSCULAR HGB CONC 34.4 g/dl (32.0-36.5); MEAN CORPUSCULAR VOLUME 87.7 fl (80.0-96.0); MONO # 0.4 10^3/uL (0.0-0.8); MONO % 5.5 % (2.0-8.0); NEUTROPHILS % 53.3 % (36.0-66.0); PLATELET COUNT, AUTOMATED 284 10^3/uL (150-450); WHITE BLOOD COUNT 7.4 10^3/uL (4.0-10.0)
[2024-12-25 11:44] LABS: HEMOGLOBIN A1c 7.5 % (4.0-6.0)
[2024-12-25 11:57] LABS: PSA SCREENING 1.69 NG/ML (< 4.00); URIC ACID 7.8 MG/DL (3.7-9.2)
[2024-12-25 12:01] LABS: ALBUMIN 4.3 G/DL (3.2-5.2); ALKALINE PHOSPHATASE 58 U/L (40-129); ALT/SGPT 47 U/L (7.0-40); AST/SGOT 20 U/L (<34); BILIRUBIN,TOTAL 0.7 MG/DL (0.3-1.2); BLOOD UREA NITROGEN 17 MG/DL (9-23); CALCIUM LEVEL 10.1 MG/DL (8.3-10.6); CARBON DIOXIDE LEVEL 29 MMOL/L (20-31); CHLORIDE LEVEL 107 MMOL/L (98-107); CHOLESTEROL LEVEL 145 MG/DL (<200); CHOLESTEROL RISK RATIO 4.34 (<5); CREATININE FOR GFR 0.97 MG/DL (0.70-1.30); GLOMERULAR FILTRATION RATE > 60.0 (>49); GLUCOSE, FASTING 152 MG/DL (74-106); HDL CHOLESTEROL 33.4 MG/DL (>40); LDL CHOLESTEROL 68.8 MG/DL (<100); NON-HDL-C 111.6 MG/DL; POTASSIUM SERUM 5.1 MMOL/L (3.5-5.1); SODIUM LEVEL 144 MMOL/L (136-145); TOTAL PROTEIN 7.5 G/DL (5.7-8.2); TRIGLYCERIDES LEVEL 214 MG/DL (<150)
== END ==
LOC: M LAB 09:36
PROVIDERS: ATTEND Nurse Practitioner Family
DX: I10 Essential (primary) hypertension (principal)

== ENCOUNTER → 2025-01-28 | Outpatient (REF) | payer BC ==
[2025-01-28 18:10] LABS: HEMOGLOBIN A1c 6.9 % (4.0-6.0)
== END ==
LOC: M LABDRWAD 17:05
PROVIDERS: ATTEND Nurse Practitioner Family
DX: E11.9 Type 2 diabetes mellitus without complications (principal)

== ENCOUNTER → 2025-09-16 | Outpatient (REF) | payer BC ==
[~2025-09-16] MED LIST changes: -FLOM0.4C39 PO; +TAMS-18 PO
[2025-09-16 14:31] LABS: ESTIMATED AVERAGE GLUCOSE 226.0 MG/DL (60-110)
[2025-09-16 14:44] LABS: CREATININE, URINE 193.3 MG/DL; MALB URINE SIEMENS 30.0 MG/L; MAU/CREAT RATIO 15.5 MCG/MG (0.0-30.0)
== END ==
LOC: M LABDRWAD 13:11
PROVIDERS: ATTEND Nurse Practitioner Family
DX: E11.9 Type 2 diabetes mellitus without complications (principal)